=== PATIENT | female | born 1970 | race African-American/Black ===

== ENCOUNTER 2024-12-28 18:17 | Emergency (ER) | payer OTHER ==
[~2024-12-28] VITALS: Ht 149.9 cm; Wt 81.2 kg
[2024-12-28 18:53] VITALS: PULSE 80; RESP 16; TEMP 98.5
[2024-12-28] MEDS ORDERED: NAPROXEN250 MG PO (20:18)
[2024-12-28 20:53] VITALS: BP 122/68; O2SAT 100
== END 2024-12-28 20:50 | disposition home or self-care (01) ==
LOC: ER 19:16
DX: N64.4 Mastodynia (principal); M79.18 Myalgia, other site; I10 Essential (primary) hypertension; M32.9 Systemic lupus erythematosus, unspecified
CPT/HCPCS: 99283